=== PATIENT | female | born 1955 | race Caucasian/White ===

== ENCOUNTER 2018-12-08 16:16 | Inpatient (IN) ==
--- NOTE | 2018-12-08 16:42 | Emergency Department Note ---
Disposition Clinical Impression: Non-STEMI (non-ST elevated myocardial infarction) Syncope Qualifiers: Syncope type: unspecified Qualified Code(s): R55 - Syncope and collapse Disposition: Admitted As Inpatient Condition: Good Referrals: NONE,PCP [Primary Care Provider] - Time of Disposition: 19:20 General Adult HPI - General Stated complaint: nausea Time Seen by Provider: 12/08/18 16:18 Source: patient, EMS Limitations: no limitations Nursing Notes Reviewed: Yes Vital Signs Reviewed: Yes - History of Present Illness HPI Narrative: Mrs. Thomson is a 63yo female with a pastmedhx of diabetes non-insulin dependent, HTN and anxiety that presents complaining of dizziness that has now resolved. Patient states that she stood up from the couch around 1pm, got very dizzy and lightheaded and had to sit down. She called her daughter from upstairs and when daughter came downstairs to check on her mom, she stated her mom was shaking diffusely including arms and legs with eyes rolling in the back of her head. This episode lasted for ~5 minutes. No incontinence or tongue biting reported. Patient denies LOC or hitting her head but doesn't recall much of the event and was confused for a short time afterwards. Patient has no histo ry of seizures. On arrival patient is no longer dizzy and has no current complaints including no chest pain, shortness of breath, vomiting or diarrhea. Per patient's family as well as the patient, the past few days, patient has been having increased fatigue as well as shortness of breath with exertion. Denies any actual chest pain. States that today her fatigue and generalized weakness was worse than usual. She states that she was unable to walk a few feet before having to stop secondary to dyspnea. She states this is very atypical for her. Patient does not wear oxygen at home. Pain Scale: 0 - Related Data Home Medications Medication Instructions Recorded Confirmed ALPRAZolam [Xanax 1 MG Tablet] 1 mg PO BID PRN 12/08/18 12/08/18 Bupropion HCl [Wellbutrin Xl] 300 mg PO DAILY 12/08/18 12/08/18 Gabapentin 600 mg PO TID 12/08/18 12/08/18 Lisinopril-HCTZ 20-12.5 [Prinzide 1 each PO DAILY 12/08/18 12/08/18 20-12.5] Metformin HCl [Fortamet] 500 mg PO DAILY 12/08/18 12/08/18 OxyCODONE/APAP 10/325 [Percocet 1 each PO Q6H PRN 12/08/18 12/08/18 10/325 MG] Allergies Allergy/AdvReac Type Severity Reaction Status Date / Time No Known Allergies Allergy Verified 07/06/16 03:05 Constitutional: Denies: fever, chills Cardiovascular: Denies: chest pain, palpitations, syncope Respiratory: Denies: cough Gastrointestinal: Denies: abdominal pain, nausea, vomiting, diarrhea Genitourinary: Denies: urgency, dysuria Musculoskeletal: Denies: back pain, myalgia Neurological: Denies: headache, paresthesias Past Medical History - Past Medical History Medical history: Reports: diabetes, hypertension Psychiatric history: Reports: anxiety, depression WEIGHT COUNT OPERATOR history: Reports: no WEIGHT COUNT OPERATOR history - Social History Smoking Status: Current every day smoker Smokeless Tobacco Status: No Alcohol use: Reports: none Drug use: Reports: none Physical Exam - General Limitations: no limitations General appearance: alert, in no apparent distress - Head Head exam: atraumatic, normocephalic - ENT ENT exam: normal exam, normal oropharynx, mucous membranes moist - Neck Neck exam: Present: normal inspection, full ROM, trachea midline - Chest Chest inspection: Present: normal inspection - Respiratory Respiratory exam: Present: normal lung sounds bilaterally. Absent: wheezes, stridor - Cardiovascular Cardiovascular exam: Present: regular rate, normal rhythm, normal heart sounds - Abdominal Exam Abdominal exam: Present: soft, Non-Tender. Absent: tenderness, distention, guarding - Extremities Exam Extremities exam: Present: normal inspection, full ROM. Absent: tenderness, pedal edema - Expanded Lower Extremity Exam Neurovascular/Tendon exam: Absent: motor deficit, sensory deficit, tendon deficit - Back Exam Back exam: Present: normal inspection, full ROM. Absent: tenderness - Neurological Exam Neurological exam: Present: alert, oriented X3, CN II-XII intact. Absent: motor sensory deficit - Psychiatric Psychiatric exam: Present: anxious - Skin Skin exam: Present: warm, dry, intact, normal color Course Vital Signs Temperature 98.5 F 12/08/18 16:38 Pulse Rate 98 12/08/18 16:38 Respiratory Rate 16 12/08/18 16:38 Blood Pressure 144/94 12/08/18 16:38 O2 Sat by Pulse Oximetry 99 12/08/18 16:38 Temperature 98.5 F 12/08/18 16:38 Pulse Rate 102 12/08/18 18:53 Respiratory Rate 18 12/08/18 18:53 Blood Pressure 159/107 12/08/18 18:53 O2 Sat by Pulse Oximetry 100 12/08/18 18:53 Oxygen Delivery Oxygen Delivery Room Air Medical Decision Making - MDM Narrative Medical decision making narrative: Patient is a 63-year-old female presenting following syncopal episode. On initial evaluation, patient is alert and oriented 3, NIH of 0, GCS of 15, family is at bedside. Patient otherwise in no acute distress with nonfocal examination. No neuro deficits, neurovascularly intact. Patient states she has had generalized weakness and fatigue for the past few days worse today with exertional dyspnea. Concern for intracranial etiology, CT of the head will be performed. Cardiac or pulmonary etiology as well, CBC, BMP as well as troponin, EKG, chest x-ray were also performed. X-ray work does show concern for elevated troponin at 0.20, further CBC and BMP are unremarkable. Given elevated troponin, patient will also have a d-dimer performed, as patient is otherwise low risk no history of DVT or PE in the past. No lower leg swelling. No history of malignancy or recent surgery/long travel. D-dimer is in the normal limits therefore CTA was not performed. Patient was given 324 mg of aspirin. EKG shows no acute ischemic changes, chest x-ray shows no acute cardiopulmonary etiology. CT of the head is negative for acute intracranial changes. At this point in time, patient will be admitted for concern for single episode as well as ACS as patient does have an STEMI with elevated troponin. - Medical Records Medical records reviewed: Yes I reviewed the patient's medical records. - Lab Data Lab results reviewed: Yes I reviewed the patient's lab results. Result diagrams: 12/08/18 17:29 12/08/18 17:29 Lab Results 12/08/18 12/08/18 12/08/18 Range/Units 17:28 17:29 17:29 WBC 12.2 H (4.3-11.1) K/mcL RBC 3.68 L (3.82-4.97) M/mcL Hgb 12.0 (11.5-15.4) g/dL Hct 36.0 (35.3-44.9) % MCV 97.8 (83.0-100.0) fL MCH 32.6 (28.0-33.3) pg MCHC 33.3 (31.6-35.5) g/dL RDW 12.4 (11.5-14.5) % Plt Count 236 (140-400) K/mcL MPV 10.2 (9.4-12.4) fL Immature Gran % 0.5 (0-4) % Seg Neutrophils % 76.3 % Lymphocytes % 17.8 % Monocytes % 3.4 % Eosinophils % 1.3 % Basophils % 0.7 % Neutrophils # 9.3 H (1.6-8.9) K/mcL Lymphocytes # 2.2 (0.6-4.6) K/mcL Monocytes # 0.4 (0.0-1.3) K/mcL Eosinophils # 0.2 (0.0-0.6) K/mcL Basophils # 0.1 (0.0-0.2) K/mcL PT 11.1 (9.4-12.1) Seconds INR 1.0 APTT 33.6 (26.0-36.0) Seconds D-Dimer (0-500) ng/mLFEU Sodium (136-145) mEq/L Potassium (3.5-5.1) mEq/L Chloride (98-107) mEq/L Carbon Dioxide (23-29) mEq/L BUN (8-23) mg/dL Creatinine (0.60-1.20) mg/dL Est GFR ( Amer) (> 60) Est GFR (Non-Af Amer) (> 60) BUN/Creatinine Ratio (6-26) Glucose (70-105) mg/dL Calculated Osmolality (280-300) Lactic Acid (0.5-2.2) mmol/L Calcium (8.6-10.3) mg/dL Total Bilirubin (0.3-1.0) mg/dL AST (13-39) Units/L ALT (7-52) Units/L Alkaline Phosphatase (34-104) Units/L Troponin I (< 0.04) ng/mL Serum Total Protein (6.4-8.9) g/dL Albumin (3.5-5.7) g/dL Globulin (2.4-3.5) g/dL Albumin/Globulin Ratio (1.1-2.2) Urine Color Yellow (Yellow) Urine Clarity Clear (Clear) Urine pH 6.0 (5.0-8.0) pH Units Ur Specific [place] 1.012 (1.010-1.025) Urine Protein Negative (Neg-Trace) mg/dL Urine Glucose (UA) 250 H (Normal) mg/dL Urine Ketones Negative (Negative) mg/dL Urine Blood Negative (Negative) Urine Nitrite Negative (Negative) Urine Bilirubin Negative (Negative) Urine Urobilinogen Normal (Normal) mg/dL Ur Leukocyte Esterase Negative (Negative) 12/08/18 12/08/18 12/08/18 Range/Units 17:29 17:29 17:29 WBC (4.3-11.1) K/mcL RBC (3.82-4.97) M/mcL Hgb (11.5-15.4) g/dL Hct (35.3-44.9) % MCV (83.0-100.0) fL MCH (28.0-33.3) pg MCHC (31.6-35.5) g/dL RDW (11.5-14.5) % Plt Count (140-400) K/mcL MPV (9.4-12.4) fL Immature Gran % (0-4) % Seg Neutrophils % % Lymphocytes % % Monocytes % % Eosinophils % % Basophils % % Neutrophils # (1.6-8.9) K/mcL Lymphocytes # (0.6-4.6) K/mcL Monocytes # (0.0-1.3) K/mcL Eosinophils # (0.0-0.6) K/mcL Basophils # (0.0-0.2) K/mcL PT (9.4-12.1) Seconds INR APTT (26.0-36.0) Seconds D-Dimer 409 (0-500) ng/mLFEU Sodium 133 L (136-145) mEq/L Potassium 3.4 L (3.5-5.1) mEq/L Chloride 102 (98-107) mEq/L Carbon Dioxide 20 L (23-29) mEq/L BUN 12 (8-23) mg/dL Creatinine 0.86 (0.60-1.20) mg/dL Est GFR ( Amer) > 60 (> 60) Est GFR (Non-Af Amer) > 60 (> 60) BUN/Creatinine Ratio 14 (6-26) Glucose 242 H (70-105) mg/dL Calculated Osmolality 284 (280-300) Lactic Acid 2.0 (0.5-2.2) mmol/L Calcium 9.4 (8.6-10.3) mg/dL Total Bilirubin 0.2 L (0.3-1.0) mg/dL AST 15 (13-39) Units/L ALT 12 (7-52) Units/L Alkaline Phosphatase 73 (34-104) Units/L Troponin I 0.20 H* (< 0.04) ng/mL Serum Total Protein 7.4 (6.4-8.9) g/dL Albumin 4.2 (3.5-5.7) g/dL Globulin 3.2 (2.4-3.5) g/dL Albumin/Globulin Ratio 1.3 (1.1-2.2) Urine Color (Yellow) Urine Clarity (Clear) Urine pH (5.0-8.0) pH Units Ur Specific [place] (1.010-1.025) Urine Protein (Neg-Trace) mg/dL Urine Glucose (UA) (Normal) mg/dL Urine Ketones (Negative) mg/dL Urine Blood (Negative) Urine Nitrite (Negative) Urine Bilirubin (Negative) Urine Urobilinogen (Normal) mg/dL Ur Leukocyte Esterase (Negative) - Radiology Data Radiology results reviewed: Yes I reviewed the patient's radiology results. Chest X-Ray 12/08/18 16:56 IMPRESSION: No acute process. D/ / Saeed Ramirez MD / Saeed Ramirez MD Interpreting Provider: Saeed Ramirez MD Head CT 12/08/18 16:57 IMPRESSION: No acute intracranial abnormality. D/ / Franco Aldridge MD / Franco Aldridge MD Interpreting Provider: Franco Aldridge MD - EKG Data EKG #1 EKG attestation: Yes I reviewed and interpreted this EKG. EKG results narrative: EKG performed at 1824 ventricular rate of 92, ears to be regular rhythm, normal axis, no ST segment elevation, depression or T-wave changes. Attestation Statement - Attestation Attestation: I, Rodrick Renner, examined this patient and my medical decision-making was reviewed with the ODD JOB LABORER/PA/Advanced Practice Nurse/Resident Physician. I agree with the documented findings, disposition and treatment plan as described except to the extent set forth below. 63-year-old female presents emergency Department with concerns of nausea after a syncopal episode. Patient states that she was found unresponsive with shaking movements and her eyes rolled in the back of her head. Patient believes that she remembers what happened during this time however she is unable to give a full history regarding the events surrounding it. She denied chest pain or shortness of breath or palpitations during the event or prior to it. There are none present in the emergency department. Patient does state that she has been weak and fatigued throughout the day today. Patient denies a history of cardiac disease. EKG did not show evidence of STEMI or other dysrhythmia. I reviewed the EKG with the resident and agree with the interpretation. Patient given aspirin and heparin in the emergency department. She will be admitted as an STEMI for further care. no critical care on this case.
[2018-12-08] MEDS ORDERED: 0.9 % Sodium Chloride 1,000 ML IVC ONE (16:56)
[2018-12-08 17:41] LABS: Bilirubin,Urine Negative (Negative); Blood,Urine Negative (Negative); Clarity,Urine Clear (Clear); Color,Urine Yellow (Yellow); Glucose,Urine (UA) 250 mg/dL (Normal); Ketones,Urine Negative (Negative); Leukocyte Esterase,Urine Negative (Negative); Nitrite,Urine Negative (Negative); Protein,Urine Negative (Neg-Trace); Specific Gravity,Urine 1.012 (1.010-1.025); Urobilinogen,Urine Normal (Normal)
[2018-12-08 17:52] LABS: Basophils # 0.1 K/mcL (0.0-0.2); Basophils % 0.7 %; Eosinophils # 0.2 K/mcL (0.0-0.6); Eosinophils % 1.3 %; Immature Granulocytes % 0.5 % (0-4); Lymphocytes # 2.2 K/mcL (0.6-4.6); Lymphocytes % 17.8 %; Mean Corpuscular HGB Conc 33.3 g/dL (31.6-35.5); Mean Corpuscular Hemoglobin 32.6 pg (28.0-33.3); Mean Corpuscular Volume 97.8 fL (83.0-100.0); Mean Platelet Volume 10.2 fL (9.4-12.4); Monocytes # 0.4 K/mcL (0.0-1.3); Monocytes % 3.4 %; Neutrophils # 9.3 K/mcL (1.6-8.9); Platelet Count 236 K/mcL (140-400); Red Blood Count 3.68 M/mcL (3.82-4.97); Red Cell Distribution Width 12.4 % (11.5-14.5); Segmented Neutrophils % 76.3 %; White Blood Count 12.2 K/mcL (4.3-11.1)
[2018-12-08 17:56] LABS: Prothrombin Time 11.1 Seconds (9.4-12.1)
[2018-12-08 17:59] LABS: Activated Partial Thrombo Time 33.6 Seconds (26.0-36.0)
[2018-12-08 18:12] LABS: Alanine Aminotransferase 12 Units/L (7-52); Albumin 4.2 g/dL (3.5-5.7); Albumin/Globulin Ratio 1.3 (1.1-2.2); Alkaline Phosphatase 73 Units/L (34-104); Aspartate Amino Transferase 15 Units/L (13-39); BUN/Creatinine Ratio 14 (6-26); Bilirubin,Total 0.2 mg/dL (0.3-1.0); Blood Urea Nitrogen 12 mg/dL (8-23); Calcium 9.4 mg/dL (8.6-10.3); Carbon Dioxide 20 mEq/L (23-29); Chloride 102 mEq/L (98-107); Globulin 3.2 g/dL (2.4-3.5); Glucose 242 mg/dL (70-105); Osmolality,Calculated 284 (280-300); Potassium 3.4 mEq/L (3.5-5.1); Sodium 133 mEq/L (136-145); Total Protein 7.4 g/dL (6.4-8.9); eGFR For African Americans > 60 (> 60); eGFR For Non-African Americans > 60 (> 60)
[2018-12-08] MEDS ORDERED: Aspirin 81 MG TAB.CHEW PO ONE (18:17)
[2018-12-08] MEDS ORDERED: Naloxone 0.4 MG/ML INJ IVP PRN (20:38)
--- NOTE | 2018-12-08 20:40 | Internal Med History&Physical ---
Date of Encounter: 12/08/18 Time of Encounter: 20:36 Internal Medicine - H&P: HPI Chief complaint: Syncope History of present illness: Ms. Thomson is a 63 year old female with a past medhx of diabetes non-insulin dependent, HTN and anxiety who presented to the ED after patient became unresponsive at home. Patient was in her usual state of health today. She stood up from the couch around 1pm, got very dizzy and lightheaded and had to sit down. She called her daughter from upstairs and when daughter came downstairs to check on her mom, she stated her mom was shaking diffusely including arms and legs with eyes rolling in the back of her head. Patient does not recall uncontrollable shaking of her left upper and lower extremities. Episode lasted approximately 5 minutes. Patient denies loss of consciousness but does not recall the event and was confused reportedly for a short period of time afterwards. Patient has no prior history of seizures or cardiac disease. No reports of weakness on one side or facial droop. Patient states that her daughter did note some slurred speech after the initial episode. No reports of chest pain, shortness of breath, nausea, vomiting or diarrhea. No incontinence or tongue biting reported. Patient smokes half a pack a day and has been smoking for the past 35 years. No significant alcohol use. On initial arrival, patient was afebrile, mildly hypertensive and mildly tachycardic. Laboratory workup notable for a neutrophilic leukocytosis of 12.2, mild hypokalemia of 3.4 an elevated troponin of 0.2. Initial EKG showed sinus rhythm with nonspecific ST and T-wave changes. CT scan of the head was performed which showed no acute intracranial abnormality. Patient given a loading dose of aspirin. Paient wishes to be DNR/DNI. Past Med Surg Social Fam HX - Past Medical History Medical history: diabetes, hypertension Psychiatric history: anxiety, depression - Social History Smoking Status: Current every day smoker Smokeless Tobacco Status: No Alcohol use: none Drug use: none - Family History Father Living Status: Hx Family Cardiac Disorders: Yes Mother Living Status: Hx Family Cardiac Disorders: Yes Hx Family Endocrine Disorder: Yes Internal Medicine - H&P: Meds ALPRAZolam [Xanax 1 MG Tablet] 1 mg PO BID PRN 12/08/18 [History] Bupropion HCl [Wellbutrin Xl] 300 mg PO DAILY 12/08/18 [History] Gabapentin 600 mg PO TID 12/08/18 [History] Lisinopril-HCTZ 20-12.5 [Prinzide 20-12.5] 1 each PO DAILY 12/08/18 [History] Metformin HCl [Fortamet] 500 mg PO DAILY 12/08/18 [History] OxyCODONE/APAP 10/325 [Percocet 10/325 MG] 1 each PO Q6H PRN 12/08/18 [History] Allergy/AdvReac Type Severity Reaction Status Date / Time No Known Allergies Allergy Verified 07/06/16 03:05 All Systems PM: A 10-system review of systems was performed and is negative for pertinent findings except as documented above in the HPI. - Constitutional Constitutional: no chills, no fever(s), no night sweats - EENT Eyes: no change in vision, no discharge, no pain, no photophobia Ears: no ear discharge, no ear pain, no tinnitus Nose, mouth and throat: no dysphagia, no nasal discharge, no neck pain, no sore throat - Cardiovascular Cardiovascular ROS IM: no chest pain, no diaphoresis, no dyspnea, no lightheadedness, no palpitations, no syncope - Respiratory Respiratory: no cough, no dyspnea, no wheezing, no excessive phlegm production - Gastrointestinal Gastrointestinal: no abdominal pain, no diarrhea, no hematemesis, no hematochezia, no melena, no nausea, no vomiting - Genitourinary Genitourinary: no change in urinary stream, no dysuria, no flank pain, no hematuria - Musculoskeletal Musculoskeletal ROS IM: no numbness, no tingling - Integumentary Integumentary IM: no rash, no unusual bruising - Neurological Neurological ROS: no confusion, no convulsions, no focal weakness, no numbness, no tingling, no tremor(s) - Hematologic/Lymphatic Hematologic/Lymphatic: no easy bruising - Constitutional Vitals: Temp Pulse Resp BP Pulse Ox 98.5 F 96 18 144/94 98 12/08/18 16:38 12/08/18 19:47 12/08/18 19:47 12/08/18 19:47 12/08/18 19:47 Exam: General: Alert and oriented 3 lying in bed in no acute distress Skin:Normal color, no rash, no lesions. HEENT:EOM, pupils equal, round and reactive. Cardiovascular:Normal S1 & S2, no rubs, murmurs or gallops. No JVD. Pulse regular. Lungs:Normal breath sounds, no wheezes or crackles. Abdomen:Soft, non-tender, no rigidity. Extremities:No deformity, no edema or tenderness, no joint swelling or clubbing. Neurological:Normal cognition and motor skills. Pulses:Carotid and radial pulses normal +2. Rest of the physical exam is non contributory Internal Med - H&P Results - Labs CBC & Chem 7: 12/09/18 00:21 12/09/18 00:21 Labs: Short CBC 12/08/18 Range/Units 17:29 WBC 12.2 H (4.3-11.1) K/mcL Hgb 12.0 (11.5-15.4) g/dL Hct 36.0 (35.3-44.9) % Plt Count 236 (140-400) K/mcL Neutrophils # 9.3 H (1.6-8.9) K/mcL BMP 12/08/18 17:29 Sodium 133 L Potassium 3.4 L Chloride 102 Carbon Dioxide 20 L BUN 12 Creatinine 0.86 Glucose 242 H Calcium 9.4 Cardiac Enzymes 12/08/18 Range/Units 17:29 Troponin I 0.20 H* (< 0.04) ng/mL Liver Function 12/08/18 Range/Units 17:29 Total Bilirubin 0.2 L (0.3-1.0) mg/dL AST 15 (13-39) Units/L ALT 12 (7-52) Units/L Alkaline Phosphatase 73 (34-104) Units/L Albumin 4.2 (3.5-5.7) g/dL Urine 12/08/18 Range/Units 17:28 Urine Color Yellow (Yellow) Urine Clarity Clear (Clear) Urine pH 6.0 (5.0-8.0) pH Units Ur Specific [place] 1.012 (1.010-1.025) Urine Protein Negative (Neg-Trace) mg/dL Urine Glucose (UA) 250 H (Normal) mg/dL - Impressions ITS Impressions Chest X-Ray 12/08/18 16:56 IMPRESSION: No acute process. D/ / Saeed Ramirez MD / Saeed Ramirez MD Interpreting Provider: Saeed Ramirez MD Head CT 12/08/18 16:57 IMPRESSION: No acute intracranial abnormality. D/ / Franco Aldridge MD / Franco Aldridge MD Interpreting Provider: Franco Aldridge MD - Assessment and Plan (1) Syncope Current Visit: Yes Status: Acute Assessment and plan: 63-year-old female with history of type 2 diabetes and hypertension found unresponsive with shaking movements and eyes will back with reported subsequent transient confusion. Patient now appears to be at baseline with no focal findings. Glucose elevated on arrival. Workup thus far notable for a elevated troponin of 0.2. EKG and CT of the head otherwise unremarkable. D-dimer less than 500 in the setting of low pretest possibility for PE. Differential at this time includes TIA, seizure, NSTEMI. -Telemetry -Seizure precautions -Neuro checks every 4hrs -Check orthostatics -Echocardiogram -Bilateral carotid duplex -Cardiology consult due to concern for NSTEMI Qualifiers: Syncope type: unspecified Qualified Code(s): R55 - Syncope and collapse (2) Non-STEMI (non-ST elevated myocardial infarction) Current Visit: Yes Status: Acute Assessment and plan: Concern for NSTEMI given elevated troponin in the setting of syncope. Repeat troponin 0.8. Review of EKG shows no ST or T-wave changes concerning for ischemia. No prior history of cardiac disease the patient has significant risk factors of hypertension, diabetes and chronic smoking history. -Telemetry -Trend troponin -Echocardiogram -Continue aspirin; will start on low-dose beta yao and statin -We will start on heparin drip if troponin continues to rise -Cardiology consult (3) Type 2 diabetes mellitus Current Visit: Yes Status: Acute Assessment and plan: Blood sugar found to be 242 on arrival. Patient currently on metformin. -Diabetic diet -Sliding scale plus basal insulin with glucose checks Qualifiers: Qualified Code(s): E11.9 - Type 2 diabetes mellitus without complications (4) HTN (hypertension) Current Visit: Yes Status: Acute Assessment and plan: Blood pressure mildly elevated on arrival. Currently 144/94. -We will check orthostatics -Monitor blood pressure overnight and resume antihypertensive if indicated Qualifiers: Hypertension type: essential hypertension Qualified Code(s): I10 - Essential (primary) hypertension (5) Neutrophilic leukocytosis Current Visit: Yes Status: Acute Assessment and plan: Leukocytosis of 12.2. No evidence of underlying infection. Likely reactive in setting of syncope. -We will monitor. (6) DVT prophylaxis Current Visit: Yes Status: Acute Assessment and plan: Subcutaneous heparin - Time Spent With Patient Total time spent is greater than 50% in coordination of care (as documented) at patient's floor/unit and/or counseling patient:
[2018-12-08] MEDS ORDERED: *HR* Dextrose 50 % in Water (Syg) 50 ML SYRINGE IVP PRN (20:43)
[2018-12-08] MEDS ORDERED: D5% in Water 1,000 ML IVC PRN (20:43)
[2018-12-08] MEDS ORDERED: Dextrose Gel 15 GM/37.5 ML TUBE PO PRN ×2 (20:43)
[2018-12-08] MEDS: Insulin LISPRO 300 UNITS/3 ML VIAL SQ SCH (22:14)
[2018-12-08] MEDS: Gabapentin 300 MG CAPSULE PO SCH (23:21)
[2018-12-08] MEDS: Insulin DETEMIR 100 UNIT/ML X5UNITS SQ SCH (23:24)
[2018-12-09 00:29] LABS: Basophils # 0.1 K/mcL (0.0-0.2); Basophils % 0.8 %; Eosinophils # 0.4 K/mcL (0.0-0.6); Eosinophils % 2.9 %; Hematocrit 32.1 % (35.3-44.9); Hemoglobin 10.7 g/dL (11.5-15.4); Immature Granulocytes % 0.3 % (0-4); Lymphocytes # 4.9 K/mcL (0.6-4.6); Lymphocytes % 38.5 %; Mean Corpuscular HGB Conc 33.3 g/dL (31.6-35.5); Mean Corpuscular Hemoglobin 32.6 pg (28.0-33.3); Mean Corpuscular Volume 97.9 fL (83.0-100.0); Mean Platelet Volume 9.8 fL (9.4-12.4); Monocytes # 0.6 K/mcL (0.0-1.3); Monocytes % 4.5 %; Neutrophils # 6.8 K/mcL (1.6-8.9); Platelet Count 226 K/mcL (140-400); Red Blood Count 3.28 M/mcL (3.82-4.97); Red Cell Distribution Width 12.5 % (11.5-14.5); White Blood Count 12.8 K/mcL (4.3-11.1)
[2018-12-09 00:52] LABS: Alanine Aminotransferase 11 Units/L (7-52); Albumin 3.8 g/dL (3.5-5.7); Albumin/Globulin Ratio 1.2 (1.1-2.2); Alkaline Phosphatase 65 Units/L (34-104); Aspartate Amino Transferase 16 Units/L (13-39); BUN/Creatinine Ratio 12 (6-26); Bilirubin,Total 0.3 mg/dL (0.3-1.0); Blood Urea Nitrogen 10 mg/dL (8-23); Calcium 8.9 mg/dL (8.6-10.3); Carbon Dioxide 20 mEq/L (23-29); Chloride 108 mEq/L (98-107); Chol/HDL Ratio 2.8 (0-4.9); Cholesterol 144 mg/dL (< 200); Globulin 3.1 g/dL (2.4-3.5); Glucose 162 mg/dL (70-105); HDL Cholesterol 52 mg/dL (40-59); LDL Cholesterol,Calculated 72 mg/dL (0-99); Osmolality,Calculated 283 (280-300); Potassium 3.1 mEq/L (3.5-5.1); Sodium 135 mEq/L (136-145); Total Protein 6.9 g/dL (6.4-8.9); Triglycerides 102 mg/dL (< 150); eGFR For African Americans > 60 (> 60); eGFR For Non-African Americans > 60 (> 60)
[2018-12-09 06:28] LABS: Chol/HDL Ratio 2.9 (0-4.9)
[2018-12-09] MEDS: Insulin LISPRO 300 UNITS/3 ML VIAL SQ SCH ×3 (07:42→17:41)
[2018-12-09] MEDS: Aspirin 81 MG TAB.CHEW PO SCH (07:59)
[2018-12-09] MEDS: Gabapentin 300 MG CAPSULE PO SCH ×3 (07:59→21:29)
[2018-12-09] MEDS: BuPROPion XL (24 HR) 150 MG TABLET PO SCH (07:59)
--- NOTE | 2018-12-09 08:30 | Internal Med Progress Note ---
Hospitalist Progress Note - Encounter Date of Encounter: 12/09/18 Time of Encounter: 09:00 - Subjective Interval History: No acute events overnight - Exam Vitals: Temp Pulse Resp BP Pulse Ox 97.5 F L 68 16 98/65 99 12/09/18 08:08 12/09/18 08:08 12/09/18 08:08 12/09/18 08:08 12/09/18 08:08 Exam: General: Alert and oriented 3 lying in bed in no acute distress Skin:Normal color, no rash, no lesions. HEENT:EOM, pupils equal, round and reactive. Cardiovascular:Normal S1 & S2, no rubs, murmurs or gallops. No JVD. Pulse regular. Lungs:Normal breath sounds, no wheezes or crackles. Abdomen:Soft, non-tender, no rigidity. Extremities:No deformity, no edema or tenderness, no joint swelling or clubbing. Neurological:Normal cognition and motor skills. Pulses:Carotid and radial pulses normal +2. Rest of the physical exam is non contributory - Assessment and Plan (1) Non-STEMI (non-ST elevated myocardial infarction) Current Visit: Yes Status: Acute Assessment and Plan: Concern for NSTEMI given elevated troponin in the setting of syncope. No prior history of cardiac disease the patient has significant risk factors of hypertension, diabetes and chronic smoking history. Troponins trended from 0.2 to 0.8 to 0.45. She was not anticoagulated overnight No ongoing chest pain. Will hold off on anticoagulation pending cardio recs Echo pending (2) Syncope Current Visit: Yes Status: Acute Assessment and Plan: Syncopal episode query seizures vs dehydration vs NSTEMI Continue IV fluid resusitation. Echo and EEG pending Cardiology and neuro recs appreciated (3) Type 2 diabetes mellitus Current Visit: Yes Status: Acute Assessment and Plan: Blood sugar found to be 242 on arrival. Patient currently on metformin. -Diabetic diet -Sliding scale plus basal insulin with glucose checks (4) HTN (hypertension) Current Visit: Yes Status: Acute Assessment and Plan: Hold BP meds and hydrate. BP is borderline hypotensive (5) Neutrophilic leukocytosis Current Visit: Yes Status: Acute Assessment and Plan: Leukocytosis of 12.2. No evidence of underlying infection. Likely reactive in setting of syncope. No indication for antibiotics (6) DVT prophylaxis Current Visit: Yes Status: Acute Assessment and Plan: Subcutaneous heparin - Time Spent with Patient Total time spent is greater than 50% in coordination of care (as documented) at patient's floor/unit and/or counseling patient: Internal Medicine: Result - Labs CBC & Chem 7: 12/09/18 00:21 12/09/18 00:21 Labs: Short CBC 12/08/18 12/09/18 Range/Units 17: 00:21 WBC 12.2 H 12.8 H (4.3-11.1) K/mcL Hgb 12.0 10.7 L (11.5-15.4) g/dL Hct 36.0 32.1 L (35.3-44.9) % Plt Count 236 226 (140-400) K/mcL Neutrophils # 9.3 H 6.8 (1.6-8.9) K/mcL BMP 12/08/18 12/09/18 17:29 00:21 Sodium 133 L 135 L Potassium 3.4 L 3.1 L Chloride 102 108 H Carbon Dioxide 20 L 20 L BUN 12 10 Creatinine 0.86 0.83 Glucose 242 H 162 H Calcium 9.4 8.9 Cardiac Enzymes 12/08/18 12/09/18 12/09/18 Range/Units 17: 00:21 05:35 Troponin I 0.20 H* 0.80 H* 0.45 H* (< 0.04) ng/mL Liver Function 12/08/18 12/09/18 Range/Units 17: 00:21 Total Bilirubin 0.2 L 0.3 (0.3-1.0) mg/dL AST 15 16 (13-39) Units/L ALT 12 11 (7-52) Units/L Alkaline Phosphatase 73 65 (34-104) Units/L Albumin 4.2 3.8 (3.5-5.7) g/dL Urine 12/08/18 Range/Units 17:28 Urine Color Yellow (Yellow) Urine Clarity Clear (Clear) Urine pH 6.0 (5.0-8.0) pH Units Ur Specific [place] 1.012 (1.010-1.025) Urine Protein Negative (Neg-Trace) mg/dL Urine Glucose (UA) 250 H (Normal) mg/dL - ABG Interpretation ABG results: PT/INR, D-dimer PT 11.1 Seconds (9.4-12.1) 12/08/18 17:29 D-Dimer 409 ng/mLFEU (0-500) 12/08/18 17:29 - Impressions Impressions Chest X-Ray 12/08/18 16:56 IMPRESSION: No acute process. D/ / Saeed Ramirez MD / Saeed Ramirez MD Interpreting Provider: Saeed Ramirez MD Head CT 12/08/18 16:57 IMPRESSION: No acute intracranial abnormality. D/ / Franco Aldridge MD / Franco Aldridge MD Interpreting Provider: Franco Aldridge MD Consult Discharge Plan - Plan Referrals: NONE,PCP [Primary Care Provider] - (2) Syncope Qualifiers: Syncope type: unspecified Qualified Code(s): R55 - Syncope and collapse (3) Type 2 diabetes mellitus Qualifiers: Qualified Code(s): E11.9 - Type 2 diabetes mellitus without complications (4) HTN (hypertension) Qualifiers: Hypertension type: essential hypertension Qualified Code(s): I10 - Essential (primary) hypertension
--- NOTE | 2018-12-09 08:34 | Cardiology Consult Note ---
Date of Encounter: 12/09/18 Time of Encounter: 09:51 Assessment and Plan (1) Altered mental state Current Visit: Yes Status: Acute Patient is current alert and answering appropriately but yesterday had two seizure-like episodes with seeming post-ictal period. -Unclear etiology -Elevated troponins x3, 0.20>0.80>0.45 -Continue to monitor on telemetry. -Echocardiogram and carotid duplex are currently ordered -Will follow and manage based on telemetry and test results Qualifiers: Qualified Code(s): R40.4 - Transient alteration of awareness Discussion w patient/family: The assessment and plan as outlined above was discussed with the patient and/or family members who expressed understanding and agreement. All questions were answered. Thank you for involving us in the care of your patient. Please call with any questions. History of Present Illness Consult date: 12/09/18 Requesting physician: Ganesh Esteban Consult reason: syncope and elevated troponins Chief complaint: syncope History of present illness: Ms. Thomson is a 63 year old female who presents for syncope and elevated troponins in a context of hypertension, anxiety, and NIDD. Yesterday afternoon around 1300, patient stood up and immediately felt very dizzy and lightheaded. She sat back down and then, when it did not go away, called her daughter downstairs. Daughter found her shaking all over, including arms and legs, with her eyes rolled back into her head. This lasted about five minutes and there were two episodes. She did not lose consciousness or hit her head. She has very little memory of these events and was very confused afterward for a brief while. She has no history of seizures in past. No recent illnesses or injuries. No new medications. No family history of similar symptoms. She was brought to the hospital by EMS, who reported that her blood glucose was 309; she generally checks at home, but had run out of test strips a couple of days ago. Over last few days, patient has had increased fatigue and exertional dyspnea. She has had no chest pain. Yesterday, these symptoms were worse than usual and she could not walk more than a few feet before she became short of breath. This is unusual for her. She does not wear any oxygen at home. In ED, D-dimer was normal at 409. She had elevated troponins x3 of 0.20>0.80>0.45. Potassium was low at 3.1. CXR showed no acute processes. Head CT showed no acute intracranial abnormality. She received ASA and heparin. ECG showed no ST segment elevation or depression and no T-wave changes. Today, she feels much better and slept well last night. MRI of head is being performed today. Neurology is consulted. Past Med Surg Social Fam HX - Past Medical History Medical history: diabetes, hypertension Psychiatric history: anxiety, depression - Past Surgical History Surgical History: no surgical history - Social History Smoking Status: Current every day smoker Packs per day: 1 pack a day Smokeless Tobacco Status: No Alcohol use: none Drug use: none - Family History Father Living Status: Hx Family Cardiac Disorders: Yes Mother Living Status: Hx Family Cardiac Disorders: Yes Hx Family Endocrine Disorder: Yes Medications and Allergies ALPRAZolam [Xanax 1 MG Tablet] 1 mg PO BID PRN 12/08/18 [History] Bupropion HCl [Wellbutrin Xl] 300 mg PO DAILY 12/08/18 [History] Gabapentin 600 mg PO TID 12/08/18 [History] Lisinopril-HCTZ 20-12.5 [Prinzide 20-12.5] 1 each PO DAILY 12/08/18 [History] Metformin HCl [Fortamet] 500 mg PO DAILY 12/08/18 [History] OxyCODONE/APAP 10/325 [Percocet 10/325 MG] 1 each PO Q6H PRN 12/08/18 [History] Allergy/AdvReac Type Severity Reaction Status Date / Time No Known Allergies Allergy Verified 07/06/16 03:05 All Systems Review: The remainder of the systems were reviewed and are negative - Constitutional Constitutional: fatigue, no weakness - EENT Eyes: no blurred vision - Cardiovascular Cardiovascular: dyspnea on exertion, no chest pain at rest, no chest pain with exertion, no dyspnea at rest, no leg edema, no orthopnea, no palpitations - Respiratory Respiratory: cough, dyspnea - Gastrointestinal Gastrointestinal: other (denies heartburn), no nausea - Genitourinary Genitourinary: no dysuria - Musculoskeletal Musculoskeletal: no muscle cramps - Neurological Neurological: no dizziness, no focal weakness, no loss of vision, no numbness, no tingling - Psychiatric Psychiatric: no anxiety Physical Examination Vital Signs, Last 4 Hours Temp Pulse Resp BP Pulse Ox 12/09/18 08:08 97.5 F L 68 16 98/65 99 12/09/18 05:01 83 103/71 Other: GENERAL: awake, pleasant, answers questions appropriately EYES: anicteric, clear sclerae, pupils equal and reactive to light bilaterally ENT: moist mucosa NECK: normal carotid pulses, no carotid bruits present CV: regular rate and rhythm, no murmurs heard. RESPIRATORY: clear to auscultation bilaterally, no wheezes, rhonchi, or rales GI: soft, nontender, nondistended. Normal bowel sounds heard. EXTREMITIES: peripheral pulses 2+/4, nonedematous. Capillary refill <2 sec. Warm, dry. Results 12/09/18 00:21 12/09/18 00:21 Lab Results 12/08/18 12/08/18 12/08/18 17:29 17:29 17:29 WBC 12.2 H Hgb 12.0 Hct 36.0 Plt Count 236 INR 1.0 APTT 33.6 D-Dimer Sodium 133 L Potassium 3.4 L Chloride 102 Carbon Dioxide 20 L BUN 12 Creatinine 0.86 Glucose 242 H Calcium 9.4 Total Bilirubin 0.2 L AST 15 ALT 12 Alkaline Phosphatase 73 Troponin I 0.20 H* 12/08/18 12/09/18 12/09/18 17:29 00:21 00:21 WBC 12.8 H Hgb 10.7 L Hct 32.1 L Plt Count 226 INR APTT D-Dimer 409 Sodium Potassium Chloride Carbon Dioxide BUN Creatinine Glucose Calcium Total Bilirubin AST ALT Alkaline Phosphatase Troponin I 0.80 H* 12/09/18 12/09/18 00:21 05:35 WBC Hgb Hct Plt Count INR APTT D-Dimer Sodium 135 L Potassium 3.1 L Chloride 108 H Carbon Dioxide 20 L BUN 10 Creatinine 0.83 Glucose 162 H Calcium 8.9 Total Bilirubin 0.3 AST 16 ALT 11 Alkaline Phosphatase 65 Troponin I 0.45 H* Consult Discharge Plan - Plan Referrals: NONE,PCP [Primary Care Provider] -
[2018-12-09 09:43] LABS: Estimated Average Glucose 174 mg/dl
[2018-12-09] MEDS ORDERED: Perflutren Lipid Microsphere 1.3 ML in 0.9 % Sodium Chloride 8.7 ML IVP ONE (11:53)
[2018-12-09] MEDS ORDERED: Perflutren Lipid Microsphere 2 ML VIAL ONE (11:57)
[2018-12-09] MEDS: Potassium Chloride Elixir 20 MEQ/15 ML UDC PO SCH ×2 (12:31→15:51)
--- NOTE | 2018-12-09 12:53 | Neurology - Consult Note ---
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 No prior history of seizures, no family history of seizures Neurological exam is nonfocal and nonlateralizing. CT head is unremarkable MRI is negative for acute findings PLAN: Echocardiogram pending Carotid duplex scan pending Recommending Ativan as needed for seizures C/W seizure precautions Does not recommend antiepileptic drugs at this time EEG pending Urine toxic screen History of Present Illness Chief complaint: seizures HPI: Ms. Thomson is a 63 year old female with a history of DM, HTN and anxiety. She presents with a chief concern of seizure-like activity. She reports that yesterday afternoon while babysitting her grandchild naproxen around 1 PM she got up off the couch to do some chores. Upon standing she became very dizzy resulting in her falling back onto the couch and subsequently she developed "shaking and my arms legs and ". She states that her daughter came downstairs but that she was unable to speak or talk to her daughter. This shaking event lasted approximately 2 minutes duration. She reports that she was confused and tired for about 20 minutes after. She reports a recurrent event approximately 20 minutes later except this time it lasted approximately 5 minutes duration. Of note, she denies any family history of seizures or any personal seizure history. Further, she denies any visual disturbance, headaches, head or neck pain or stiffness, flulike symptoms, joint aches or pains, fevers, chills, chest pain, shortness of breath, paresthesias or focal motor weakness. She does note that during the seizure-like activity she was having blurred vision and aphasia but does not endorse any other symptoms otherwise. She has not had repeat of these events since admission. She has had a few episodes of borderline hypotension but otherwise vitals remained stable. She has a mild leukocytosis of 12.8 which is most likely reactionary. Troponin was elevated at 0.20, 0.80 0.45 and there is concern for NSTEMI; cardiology following. Otherwise, she was found to have hypokalemia with serum potassium of 3.4 and a subsequent 3.1 after hydration. An MRI has been completed and negative for acute intracranial abnormalities finding only mild chronic microvascular ischemic disease. Echocardiograms been completed and read is pending. Carotid duplex scan also pending completion as well as EEG. Past Med Surg Social Fam HX - Past Medical History Medical history: diabetes, hypertension Psychiatric history: anxiety, depression - Past Surgical History Surgical History: no surgical history - Social History Smoking Status: Current every day smoker Packs per day: 1 pack a day Smokeless Tobacco Status: No Alcohol use: none Drug use: none - Family History Father Living Status: Hx Family Cardiac Disorders: Yes Mother Living Status: Hx Family Cardiac Disorders: Yes Hx Family Endocrine Disorder: Yes Medications and Allergies ALPRAZolam [Xanax 1 MG Tablet] 1 mg PO BID PRN 12/08/18 [History] Bupropion HCl [Wellbutrin Xl] 300 mg PO DAILY 12/08/18 [History] Gabapentin 600 mg PO TID 12/08/18 [History] Lisinopril-HCTZ 20-12.5 [Prinzide 20-12.5] 1 each PO DAILY 12/08/18 [History] Metformin HCl [Fortamet] 500 mg PO DAILY 12/08/18 [History] OxyCODONE/APAP 10/325 [Percocet 10/325 MG] 1 each PO Q6H PRN 12/08/18 [History] Allergy/AdvReac Type Severity Reaction Status Date / Time No Known Allergies Allergy Verified 07/06/16 03:05 All Systems: The remainder of the systems were reviewed and are negative Review of Systems: Review of systems as per history of present illness - Constitutional Constitutional ROS IM: as per HPI Physical Examination - Vital Signs Vital Signs: Initial Vital Signs Temp Pulse Resp BP Pulse Ox 98.5 F 98 16 144/94 99 12/08/18 16:38 12/08/18 16:38 12/08/18 16:38 12/08/18 16:38 12/08/18 16:38 - Exam Exam: Examination: General Examination: *CONSTITUTIONAL: Alert and oriented x3, no acute distress *GENERAL APPEARANCE OF PATIENT appears healthy and well groomed *EYES: pupils equal, round, reactive to light and accommodation, conjunctiva clear *CARDIOVASCULAR: no peripheral edema, distal temperature normal, dorsalis pedis pulses normal. Refer to vital signs * MUSCULOSKELETAL: *GAIT AND STATION: *ASSESSMENT OF MUSCLE STRENGTH IN THE UPPER AND LOWER EXTREMITIES bilateral deltoid, bicep, tricep, quality assurance supervisor trim strength, hip flexors ,anterior tibialis, dorsoflexion of the foot 5/5 *MUSCLE TONE IN THE UPPER AND LOWER EXTREMITIES normal. No abnormal movements, fasciculations or atrophy identified. Neurological: *ORIENTATION to person, situation, time and place *LANGUAGE AND FUNCTION no significant aphasia or dysarthia was noted. *ATTENTION AND CONCENTRATION are normal *LANGUAGE FUNCTION no significant aphasia or dysarthia was noted. *FUND OF KNOWLEDGE aware of current events, past history, vocabulary *MENTAL attention span and concentration normal. *CN II optic fundi were normal, no papilledema noted. *CN III,IV, PERRLA extraocular eye movements were full, no nystagmus and no ptosis noted. *CN V shows normal sensation and jaw opens symmetrically. *CN VII shows normal facial movement symmetrically, upper and lower bilaterally. *CN VIII shows no significant hearing loss on exam *CN IX-X palate elevated symmetrically *CN XI normal strength in the sternocleidomastoid muscles, symmetrical shoulder shrugging. *CN XII tongue protruded in the midline, with normal strength and movement. *SENSORY EXAMINATION light touch intact *REFLEXES: deep tendon reflexes were normal and symmetrical , grade 2/4 diffusely, no pathological reflexes were noted. *CEREBELLAR TESTING normal finger to nose, heel/knee/jason *PAIN LEVEL 0/10 Results - Laboratory Findings CBC and BMP: 12/09/18 00:21 12/09/18 00:21 Abnormal lab findings: Abnormal lab results WBC 12.8 K/mcL (4.3-11.1) H 12/09/18 00:21 RBC 3.28 M/mcL (3.82-4.97) L 12/09/18 00:21 Hgb 10.7 g/dL (11.5-15.4) L 12/09/18 00:21 Hct 32.1 % (35.3-44.9) L 12/09/18 00:21 Neutrophils # 9.3 K/mcL (1.6-8.9) H 12/08/18 17:29 Lymphocytes # 4.9 K/mcL (0.6-4.6) H 12/09/18 00:21 Heparin Anti-Xa, Unfract 0.04 IU/mL (0.30-0.70) L 12/09/18 05:35 Sodium 135 mEq/L (136-145) L 12/09/18 00:21 Potassium 3.1 mEq/L (3.5-5.1) L 12/09/18 00:21 Chloride 108 mEq/L (98-107) H 12/09/18 00:21 Carbon Dioxide 20 mEq/L (23-29) L 12/09/18 00:21 Glucose 162 mg/dL (70-105) H 12/09/18 00:21 POC Glucose 170 mg/dL (70-99) H 12/09/18 05:26 Hemoglobin A1c 7.7 % (-5.6) H 12/09/18 00:21 Total Bilirubin 0.2 mg/dL (0.3-1.0) L 12/08/18 17:29 Troponin I 0.45 ng/mL (< 0.04) H* 12/09/18 05:35 Urine Glucose (UA) 250 mg/dL (Normal) H 12/08/18 17:28 - Diagnostic Findings Additional findings: MR/MR head/brain wo con IMPRESSION: No acute intracranial abnormality. Mild chronic microvascular ischemic disease. CT/CT head/brain wo con IMPRESSION: No acute intracranial abnormality. Consult Discharge Plan - Plan Referrals: NONE,PCP [Primary Care Provider] -
[2018-12-09] MEDS ORDERED: *HR* LORazepam 2 MG/ML VIAL IVP PRN (13:49)
[2018-12-09] MEDS ORDERED: 0.9 % Sodium Chloride 1,000 ML IVC ONE (13:50)
--- NOTE | 2018-12-09 14:39 | Electrocardiograph Report ---
[address] [address] Test Date: 2018-12-08 Pat Name: Dea Thomson Department: [id number] Room: 2A41 Gender: F Gm Video: : 1955 Requested By: Rodrick Renner Order Number: [id number] Reading MD: Jorge Ibarra Measurements Intervals [place] Rate: 101 P: 74 [place]: 170 QRS: 59 QRSD: 87 T: 70 QT: 364 QTc: 472 Interpretive Statements Sinus tachycardia Low voltage, precordial leads Electronically Signed On 12-09-2018 14:37:49 EDT by Jorge Ibarra
--- NOTE | 2018-12-09 14:59 | Event Note ---
Date of Encounter: 12/09/18 Time of Encounter: 14:56 EEG has been completed showing normal awake and sleep, no epileptiform actvity identified Given that this is a first time seizure event and she has a normal EEG there is suspicion for non-epileptic seizures At this time we are not recommending starting antiepileptic drugs Recommending f/u with Neurology Dr. Quezada in 3-4 weeks after discharge
[2018-12-09] MEDS: Acetaminophen 325 MG TABLET PO PRN (15:49)
[2018-12-09] MEDS ORDERED: Potassium Chloride Elixir 20 MEQ/15 ML UDC PO SCH (16:00)
--- NOTE | 2018-12-09 17:20 | EEG/EMG/Oth Biometrics Report ---
EEG Procedure Report Date of procedure: 12/09/18 EEG Procedure: Routine EEG Procedure Note: This EEG was acquired with standard international 10-20 system with EKG recording. The background EEG activity was characterized by the presence of posterior dominant alpha rhythm with the best frequency up to 9 Hz. The background activity was reactive to eye openings. Sleep stages were not identified during this tracing. Drowsiness was characterized by drop off of posterior dominant Alpha rhythm. There are no electrographic seizures identified during this tracing. There are no epileptiform discharges or focal slowing noted during this recording. Photic stimulation produced no abnormalities. Hyperventilation procedure not performed EKG tracing showed no significant cardiac dysrhythmia. Extensive beta activity was seen diffusely during the study. Impression: This is essentially a normal awake and drowsy EEG. Extensive beta can be the results of medication effects including those from benzo and phenobarbital. Clinical Correlation: Normal EEGs, however, do not exclude epilepsy. Clinical correlation is advised.
[2018-12-09 19:40] LABS: Amphetamine Screen,Urine Positive ng/mL (Cutoff=1000); Barbiturate Screen,Urine Negative ng/mL (Cutoff=200); Benzodiazepines Screen,Urine Negative ng/mL (Cutoff=200); Cannabinoid Screen,Urine Negative ng/mL (Cutoff = 50); Cocaine Screen,Urine Negative ng/mL (Cutoff= 300); Opiate Screen,Urine Negative ng/mL (Cutoff=300); Phencyclidine Screen,Urine Negative ng/mL (Cutoff=25)
[2018-12-09] MEDS: Nicotine 21 MG PATCH.TD24 TD SCH (21:29)
[2018-12-09] MEDS: Insulin DETEMIR 100 UNIT/ML X5UNITS SQ SCH (22:09)
[2018-12-09] MEDS ORDERED: ALPRAZolam 1 MG TABLET PO PRN (22:11)
[2018-12-10 06:57] LABS: Basophils # 0.1 K/mcL (0.0-0.2); Basophils % 0.9 %; Eosinophils # 0.6 K/mcL (0.0-0.6); Hematocrit 38.6 % (35.3-44.9); Immature Granulocytes % 0.3 % (0-4); Lymphocytes # 4.6 K/mcL (0.6-4.6); Lymphocytes % 41.1 %; Mean Corpuscular HGB Conc 31.9 g/dL (31.6-35.5); Mean Corpuscular Hemoglobin 32.9 pg (28.0-33.3); Mean Corpuscular Volume 103.2 fL (83.0-100.0); Mean Platelet Volume 10.5 fL (9.4-12.4); Monocytes # 0.4 K/mcL (0.0-1.3); Neutrophils # 5.4 K/mcL (1.6-8.9); Platelet Count 272 K/mcL (140-400); Red Blood Count 3.74 M/mcL (3.82-4.97); Red Cell Distribution Width 13.1 % (11.5-14.5); Segmented Neutrophils % 48.7 %; White Blood Count 11.1 K/mcL (4.3-11.1)
[2018-12-10 06:59] LABS: Hemoglobin 12.3 g/dL (11.5-15.4)
[2018-12-10 07:24] LABS: BUN/Creatinine Ratio 18 (6-26); Blood Urea Nitrogen 13 mg/dL (8-23); Calcium 9.6 mg/dL (8.6-10.3); Carbon Dioxide 21 mEq/L (23-29); Chloride 109 mEq/L (98-107); Glucose 143 mg/dL (70-105); Magnesium 1.8 mg/dL (1.6-2.6); Osmolality,Calculated 293 (280-300); Phosphorous 2.4 mg/dL (2.7-4.5); Potassium 4.7 mEq/L (3.5-5.1); Sodium 140 mEq/L (136-145); eGFR For African Americans > 60 (> 60); eGFR For Non-African Americans > 60 (> 60)
[2018-12-10] MEDS: Insulin LISPRO 300 UNITS/3 ML VIAL SQ SCH ×3 (07:52→17:12)
[2018-12-10] MEDS: Nicotine 21 MG PATCH.TD24 TD SCH (07:53)
[2018-12-10] MEDS: Gabapentin 300 MG CAPSULE PO SCH ×3 (07:53→21:27)
[2018-12-10] MEDS: BuPROPion XL (24 HR) 150 MG TABLET PO SCH (07:53)
[2018-12-10] MEDS: Aspirin 81 MG TAB.CHEW PO SCH (07:53)
[2018-12-10] MEDS: Acetaminophen 325 MG TABLET PO PRN ×2 (07:59→18:07)
--- NOTE | 2018-12-10 09:15 | Internal Med Progress Note ---
Hospitalist Progress Note - Encounter Date of Encounter: 12/10/18 Time of Encounter: 09:00 - Subjective Interval History: No acute events overnight - Exam Vitals: Temp Pulse Resp BP Pulse Ox 97.5 F L 73 18 132/89 100 12/10/18 06:56 12/10/18 06:56 12/10/18 06:56 12/10/18 06:56 12/10/18 06:56 Exam: General: Alert and oriented 3 lying in bed in no acute distress Skin:Normal color, no rash, no lesions. HEENT:EOM, pupils equal, round and reactive. Cardiovascular:Normal S1 & S2, no rubs, murmurs or gallops. No JVD. Pulse regular. Lungs:Normal breath sounds, no wheezes or crackles. Abdomen:Soft, non-tender, no rigidity. Extremities:No deformity, no edema or tenderness, no joint swelling or clubbing. Neurological:Normal cognition and motor skills. Pulses:Carotid and radial pulses normal +2. Rest of the physical exam is non contributory - Assessment and Plan (1) Non-STEMI (non-ST elevated myocardial infarction) Current Visit: Yes Status: Acute Assessment and Plan: Concern for NSTEMI given elevated troponin in the setting of syncope. No prior history of cardiac disease the patient has significant risk factors of hypertension, diabetes and chronic smoking history. Troponins trended from 0.2 to 0.8 to 0.45. Echo showed depressed EF of 45 % Will obtain cardiac cath to r/o ischemic cardiomyopathy. Patient is euvolemic and no indication diuretics at this time (2) Syncope Current Visit: Yes Status: Acute Assessment and Plan: Syncopal episode query seizures vs dehydration vs NSTEMI Resolved. EEG showed no seizures Echo showed depressed EF. Cardio on board for cath today (3) Type 2 diabetes mellitus Current Visit: Yes Status: Acute Assessment and Plan: Blood sugar found to be 242 on arrival. Patient currently on metformin. -Diabetic diet -Sliding scale plus basal insulin with glucose checks (4) HTN (hypertension) Current Visit: Yes Status: Acute Assessment and Plan: Hold BP meds and hydrate. BP is borderline hypotensive (5) Neutrophilic leukocytosis Current Visit: Yes Status: Acute Assessment and Plan: Leukocytosis of 12.2. No evidence of underlying infection. Likely reactive in setting of syncope. No indication for antibiotics (6) DVT prophylaxis Current Visit: Yes Status: Acute Assessment and Plan: Subcutaneous heparin - Time Spent with Patient Total time spent is greater than 50% in coordination of care (as documented) at patient's floor/unit and/or counseling patient: Internal Medicine: Result - Labs CBC & Chem 7: 12/10/18 06:17 12/10/18 06:17 Labs: Short CBC 12/10/18 Range/Units 06:17 WBC 11.1 (4.3-11.1) K/mcL Hgb 12.3 D (11.5-15.4) g/dL Hct 38.6 (35.3-44.9) % Plt Count 272 (140-400) K/mcL Neutrophils # 5.4 (1.6-8.9) K/mcL BMP 12/10/18 06:17 Sodium 140 Potassium 4.7 Chloride 109 H Carbon Dioxide 21 L BUN 13 Creatinine 0.72 Glucose 143 H Calcium 9.6 Cardiac Enzymes 12/09/18 Range/Units 15:35 Troponin I 0.28 H* (< 0.04) ng/mL - ABG Interpretation ABG results: PT/INR, D-dimer PT 11.1 Seconds (9.4-12.1) 12/08/18 17:29 D-Dimer 409 ng/mLFEU (0-500) 12/08/18 17:29 - Impressions Impressions Brain MRI 12/09/18 03:52 IMPRESSION: No acute intracranial abnormality. Mild chronic microvascular ischemic disease. D/ / 12/09/2018 10:58:32 [facility] Inter[facility] Provider: Becky Givens MD Echocardiogram 12/09/18 20:41 Impressions: LVEF 45%. LV segmental wall motion abnormality (see Diagram below). Definity echo contrast was used. Small sized, not well defined apical mass which may represent thrombus vs. papillary muscle. Mild left ventricular diastolic dysfunction. Normal right ventricular structure and function. Mild mitral regurgitation. Mild tricuspid regurgitation. Mild pulmonic regurgitation. No pulmonary hypertension. Discussed with Cardiology. Left Ventricular Wall Motion: Rest Echo Findings The apex, apical septal, mid inferior septal and apical lateral garcia were hypokinetic. All other wall segments showed normal motion. Findings: Study Quality * Technically adequate exam. ECG Findings * Normal sinus rhythm. Left Ventricle * Definity echo contrast was used. * Mild left ventricular diastolic dysfunction. * No LVOT obstruction. * LVEF 45%. Right Ventricle * Normal right ventricular structure and function. Left Atrium * Normal left atrial size. Right Atrium * Normal right atrial size. Aortic Valve * No aortic regurgitation. * Trileaflet aortic valve. * No aortic stenosis. Mitral Valve * Normal mitral valve structure. * No mitral stenosis. * Mild mitral regurgitation. Tricuspid Valve * Normal tricuspid valve structure. * Mild tricuspid regurgitation. * Estimated RA pressure is 3 mmHg. * Estimated RVSP is 28 mmHg. * No pulmonary hypertension. Pulmonic Valve * Pulmonic valve is not well visualized. * No pulmonic stenosis. * Mild pulmonic regurgitation. Pulmonary Artery * Pulmonary artery not well visualized. Aorta * Normally sized aortic root. Pericardium * There is no pericardial effusion present. Interatrial Septum * No evidence of PFO by color Doppler. IVC * Normal IVC dimensions and inspiratory collapse. ADDENDUM: 12/09/18 5391 Impressions: LVEF 35-40%. LV segmental wall motion abnormality (see Diagram below). Definity echo contrast was used. Small sized, not well defined apical mass which may represent thrombus vs. papillary muscle. Mild left ventricular diastolic dysfunction. Normal right ventricular structure and function. Mild mitral regurgitation. Mild tricuspid regurgitation. Mild pulmonic regurgitation. No pulmonary hypertension. Discussed with Cardiology. Left Ventricular Wall Motion: Rest Echo Findings The apex, apical septal, mid inferior septal and apical lateral garcia were hypokinetic. All other wall segments showed normal motion. Findings: Study Quality * Technically adequate exam. ECG Findings * Normal sinus rhythm. Left Ventricle * Definity echo contrast was used. * Mild left ventricular diastolic dysfunction. * No LVOT obstruction. * LVEF 35-40%. Right Ventricle * Normal right ventricular structure and function. Left Atrium * Normal left atrial size. Right Atrium * Normal right atrial size. Aortic Valve * No aortic regurgitation. * Trileaflet aortic valve. * No aortic stenosis. Mitral Valve * Normal mitral valve structure. * No mitral stenosis. * Mild mitral regurgitation. Tricuspid Valve * Normal tricuspid valve structure. * Mild tricuspid regurgitation. * Estimated RA pressure is 3 mmHg. * Estimated RVSP is 28 mmHg. * No pulmonary hypertension. Pulmonic Valve * Pulmonic valve is not well visualized. * No pulmonic stenosis. * Mild pulmonic regurgitation. Pulmonary Artery * Pulmonary artery not well visualized. Aorta * Normally sized aortic root. Pericardium * There is no pericardial effusion present. Interatrial Septum * No evidence of PFO by color Doppler. IVC * Normal IVC dimensions and inspiratory collapse. Consult Discharge Plan - Plan Referrals: NONE,PCP [Primary Care Provider] - (2) Syncope Qualifiers: Syncope type: unspecified Qualified Code(s): R55 - Syncope and collapse (3) Type 2 diabetes mellitus Qualifiers: Qualified Code(s): E11.9 - Type 2 diabetes mellitus without complications (4) HTN (hypertension) Qualifiers: Hypertension type: essential hypertension Qualified Code(s): I10 - Essential (primary) hypertension
--- NOTE | 2018-12-10 09:38 | Cardiology Progress Note ---
Date of Encounter: 12/10/18 Time of Encounter: 09:36 Assessment and Plan (1) Altered mental state Current Visit: Yes Status: Acute Patient is current alert and answering appropriately but yesterday had two seizure-like episodes with seeming post-ictal period. -Unclear etiology -Elevated troponins x3, 0.20>0.80>0.45>0.28 -Low potassium from yesterday has resolved after repletion with KCl -Echocardiogram showed LVEF 35-40% with LV segmental wall motion abnormality. There was a small, poorly-defined apical mass which may be thrombus vs papillary muscle. There was mild LV diastolic dysfunction, normal RV structure and function, and mild MR, TR, CO, but no pulmonary HTN. -Carotid duplex showed bilateral nonstenotic plaques in carotid system -Plan is for cardiac catheterization today, likely this afternoon. -Continue to monitor on telemetry. Qualifiers: Qualified Code(s): R40.4 - Transient alteration of awareness Discussion w patient/family: The assessment and plan as outlined above was discussed with the patient and/or family members who expressed understanding and agreement. All questions were answered. Thank you for involving us in the care of your patient. Please call with any questions. Subjective Principal diagnosis: altered mental status of unclear etiologu Interval history: Patient has been scheduled for cardiac catheterization today and expresses some anxiety regarding this. She is also concerned that her smoker's cough will happen during the catheterization and that will cause difficulties with the t est. She otherwise denies any further episodes and reports that she slept well last night. Objective Vital Signs, Last 4 Hours Temp Pulse Resp BP Pulse Ox 12/10/18 06:56 97.5 F L 73 18 132/89 100 Other: GENERAL: awake, answering questions appropriately, slightly anxious EYES: clear sclerae, anicteric, pupils equal and reactive to light HENT: atraumatic, normocephalic, moist mucosa NECK: normal carotid pulses, no carotid bruits heard CV: regular rate and rhythm, no murmurs RESPIRATORY: clear to auscultation bilaterally GI: soft, nontender, nondistended. Normal bowel sounds heard EXTREMITIES: peripheral pulses 2+/4 bilaterally, cool skin at feet, nonedematous, capillary refill <2 sec Results 12/10/18 06:17 12/10/18 06:17 Lab Results 08/12/10/18 12/10/18 15:35 06:17 06:17 WBC 11.1 Hgb 12.3 D Hct 38.6 Plt Count 272 Sodium 140 Potassium 4.7 Chloride 109 H Carbon Dioxide 21 L BUN 13 Creatinine 0.72 Glucose 143 H Calcium 9.6 Magnesium 1.8 Troponin I 0.28 H* - Imaging and Cardiology Echo: report reviewed Other Results: carotid duplex report reviewed Consult Discharge Plan - Plan Referrals: NONE,PCP [Primary Care Provider] -
[2018-12-10] MEDS ORDERED: GuaiFENesin Liq 200 MG/10 ML UDC PO PRN (10:41)
[2018-12-10] MEDS ORDERED: Acetylcysteine 10% 2 ML INHSOL IH ONE (10:42)
[2018-12-10] MEDS ORDERED: Albuterol 2.5 MG/3 ML NEBULIZER IH PRN (10:42)
[2018-12-10] MEDS: Metoprolol XL (24 HR) Succ 25 MG TAB.ER.24H PO SCH (14:06)
[2018-12-10] MEDS ORDERED: *HR* Heparin 10,000 UNIT/10 ML VIAL ONE ×2 (15:58→16:42)
[2018-12-10] MEDS ORDERED: Iopamidol 125 ML INFUS..BTL ONE ×2 (15:59→16:40)
[2018-12-10] MEDS ORDERED: Heparin 1,000 UNITS/500 mL 500 ML ONE (15:59)
[2018-12-10] MEDS ORDERED: 0.9 % Sodium Chloride 1,000 ML ONE (15:59)
[2018-12-10] MEDS ORDERED: Nitroglycerin 1,000 MCG/10 ML VIAL IV ONE (15:59)
[2018-12-10] MEDS ORDERED: *HR* FentaNYL (PF) 100 MCG/2 ML VIAL ONE (16:27)
[2018-12-10] MEDS ORDERED: *HR* Midazolam HCl 2 MG/2 ML VIAL ONE (16:27)
--- NOTE | 2018-12-10 16:30 | Pre-Sedation Evaluation ---
Pre-sedation evaluation - Pre-sedation checklist Date of procedure: 12/10/18 Procedure: Diagnostic cardiac catheterization per diabetes clinical manager note Recent Vitals: Last Vital Signs Temp 97.9 F 12/10/18 12:13 Pulse 78 12/10/18 12:13 Resp 18 12/10/18 12:13 BP 132/85 12/10/18 12:13 Pulse Ox 97 12/10/18 12:13 H&P (including ROS) documented in medical record: Yes Previous reaction to sedatives/anesthetics: Yes; explain in comment Dietary Status: NPO after Midnight Dentition: dentures removed ASA Classification *see protocol: CLASS II-Mild systemic disease Cardiac Registry (Cardio Only) - Functional Capacity Functional Capacity: >=4 METS with symptoms - Clincal Frailty Scale Clinical Frailty Scale: Managing Well
[2018-12-10] MEDS ORDERED: Tirofiban 12.5 MG/250ML 12.5 MG/250 ML BAG ONE (16:43)
[2018-12-10] MEDS ORDERED: Tirofiban 12.5 MG/250ML 12.5 MG/250 ML BAG IVC SCH (17:00)
--- NOTE | 2018-12-10 17:12 | Invasive Diagnostic Lab Proc ---
Name: Dea Thomson Date of Study: 12/10/2018 Date: 1955 Ht: 61.8in Medical Record#: [id number] Age: 63 Wt: 152.12lb Gender: Female BSA: 1.7 Order #: [id number] BMI: 27.99 Physicians Procedure Physician: Mariana Matamoros MD Referring MD: Referring MD: Staff Name Position Time In Jennifer Gordillo RT (R) Monitor 04:33 PM Rober Casper RN Newsstand Vendor 04:34 PM Procedures Performed Procedure L HRT ARTERY/VENTRICLE ANGIO PRQ CARD BRENT STENT W/ANGIO 1 VSL Pre-Procedure Checklist Informed consent is complete signed and on chart. H&P is on chart. ID band is on and ID verified with patient. Patient NPO for procedure The procedure was described for the patient and questions were answered. ECG is on chart. Plan of Care Patient will tolerate the procedure without complications. Adequate level of comfort will be maintained. Hemodynamics will remain stable Patient will recover from procedure without complications. Respiratory function will be maintained. Cardiac rhythm will remain stable. Patient temperature will be maintained. Patient and/or family have verbalized understanding of the procedure. Patient Education Chief Complaint/Reason for Test: Cardiac Cath Developmental Category: Adult (18-64 years) Developmentally Appropriate for Age: Yes Learning Barriers: None Education Needs: Procedure Education Method: Verbal Information Taught: Cardiac Cath Educational Evaluation: Able to repeat information Intravenous Access Time IV Size Location DC'd Fluid/Drip Rate Units RN 20g 1 /" Patent On Arrival 0.9NaCl ml/hr Allergies No Known Allergies NKA NO HOME MEDICATIONS Vital Signs Time BP (mmHg) HR (bpm) O2 Sat. RR (bpm) LOC 04:26 PM / % 5 = Fully awake and oriented or at pre-proc level 04:28 PM 140 / 91 83 97 % 19 04:33 PM 145 / 107 85 99 % 16 04:38 PM 155 / 97 82 100 % 17 04:43 PM 147 / 98 83 97 % 15 04:48 PM 135 / 96 77 100 % 20 04:53 PM 151 / 98 83 95 % 24 04:58 PM 161 / 107 82 96 % 30 Procedural Medications Time Medication Dose Units Method Given By 04:25 PM Oxygen 2 L/min nasal cannula Neil Billy RN 04:28 PM Versed 1 mg Intravenous Neil Billy RN 04:28 PM Fentanyl 50 mcg Intravenous Neil Billy RN 04:35 PM Lidocaine 2% 10 ml Subcutaneous Mariana Matamoros MD 04:42 PM Heparin 3500 units Intravenous Rober Casper RN 04:44 PM Aggrastat Bolus: 33 ml Intravenous Rober Casper RN 04:44 PM Aggrastat 12.5mg/250ml 12 ml Intravenous Rober Casper RN 04:56 PM Plavix 600 mg Orally Rober Casper RN ASA Classification: CLASS II- Mild systemic disease (i.e. well-controlled diabetes, hypertension, asthma, cigarette smoking) Ai Score Preprocedure Postprocedure Activity 2- Moves 4 extremities sustained head lift Activity 2- Moves 4 extremities sustained head lift Circulation 2- SBP +/= 20 points of pre-anesthetic level Circulation 2- SBP +/= 20 points of pre-anesthetic level Consciousness 2- Awake and alert oriented x 3 Consciousness 2- Awake and alert oriented x 3 O2 Saturation 2- Able to maintain O2 satruation of 92% on room air O2 Saturation 2- Able to maintain O2 satruation of 92% on room air Respiratory 2- Able to deep breathe and cough well Respiratory 2- Able to deep breathe and cough well Total Score 10 Total Score 10 Contrast Agent: Isovue Diagnostic Contrast: 87 ml Total Contrast: 87 ml Fluoro Dose: 14 mGy Procedure Log Time Note Enter By 04:22 PM 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 ced 04: PM Physician arrived 16:25 ced 04:25 PM ASA Class CLASS II- Mild systemic disease (i.e. well-controlled diabetes, hypertension, asthma, cigarette smoking) ced 04:25 PM Ethan and isa completed 04:25 PM Sign in performed according to hospital policy. Informed consent was obtained. : PM Time: 16:25 Oxygen on at 2 L/min per nasal cannula by Neil Billy RN : PM Time: 16:26 Patient comfortable and pain free: Yes : PM Time: 16:26LOC: 5 = Fully awake and oriented or at pre-proc level cedwards 04:26 PM Vitals capture started with the following parameters, Patient=Adult, Interval=5 min, Initial Ltbqigfw=558 mmHg, Deflation Rate=3 mmHg, Cuff placed on Right Arm 04:26 PM Vitals capture stopped. 04:27 PM Vitals capture started with the following parameters, Patient=Adult, Interval=5 min, Initial Hfketbtu=794 mmHg, Deflation Rate=3 mmHg, Cuff placed on Right Arm 04:27 PM CathStat 04:27 PM Procedure start 16:27 cedwards 04:28 PM HR=83 bpm, DZIW=944/91 mmhg, SpO2=97.0 %, Resp=19 B/min 04:28 PM Time: 16:28 Versed 1 mg Intravenous Given by Neil Billy RN cedwards 04:28 PM Time: 16:28 Fentanyl 50 mcg Intravenous Given by Neil Billy RN cedwards 04:28 PM Recorded ECG: HR=85 Condition=Condition 1 04:29 PM Recorded ECG: HR=85 Condition=Condition 1 04:30 PM Pressure channel 1 zeroed. 04:31 PM Clinical Presentation: Unstable angina cedwards 04:31 PM Time out was performed according to hospital policy. Conscious sedation and anesthesia was achieved (see medication log with in this report above) cedwards 04:33 PM HR=85 bpm, XOXG=936/107 mmhg, SpO2=99.0 %, Resp=16 B/min 04:33 PM Jennifer Gordillo RT (R) Position: Monitor Time in: 16:33 to relieve Rober Casper RN cedwards 04:34 PM Rober Casper RN Position: Newsstand Vendor Time in: 16:34 to relieve Neil Billy RN cedwards 04:35 PM Time: 16:35 10 ml Lidocaine 2% to right groin Subcutaneous Given by Mariana Matamoros MD [email or web address] 04:35 PM Micro-Introducer Kit utilized for sheath placement [email or web address] 04:35 PM Access obtained by percutaneous puncture. 6Fr 10cm Terumo Redmon sheath placed in right Femoral artery. [id number] [email or web address] 04:35 PM 0.035 145cm Navilyst 3mmJ wire [id number] [email or web address] 04:35 PM 5Fr FR 4 catheter inserted over the wire [facility] [email or web address] 04:36 PM RCA angiography performed in multiple views. [email or web address] 04:36 PM Recorded Pressure: Ao, HR=84, Condition=Condition 1 (Aorta) Ao 120/75/100 04:37 PM Coronary Dominance: right [email or web address] 04:37 PM Catheter removed [email or web address] 04:37 PM 5Fr FL 4 catheter inserted over the wire DNC [email or web address] 04:38 PM HR=82 bpm, HYSU=039/97 mmhg, OhP8=830.0 %, Resp=17 B/min, Comment=sr 04:38 PM Catheter removed [email or web address] 04:39 PM 5Fr FL 3.5 catheter inserted over the wire [id number] [email or web address] 04:40 PM LCA angiography performed in multiple views. [email or web address] 04:40 PM Recorded Pressure: Ao, HR=82, Condition=Condition 1 (Aorta) Ao 138/98/116 04:42 PM Catheter removed [email or web address] 04:42 PM 5Fr Pigtail catheter inserted over the wire DN [email or web address] 04:42 PM Catheter crossed the aortic valve and was selectively placed in the left ventricle. Pressures recorded on pullback for left heart catheterization. [email or web address] 04:42 PM Time: 16:42 Heparin 3500 units Intravenous Given by Rober Casper RN [email or web address] 04:42 PM Recorded Pressure: LV, HR=86, Condition=Condition 1 (Left Ventricle) LV 150/31/26 04:42 PM Recorded Pressure: LV, Ao, HR=84, Condition=Condition 1 (Left Ventricle) LV 152/25/27, (Aorta) Ao 145/51/94 04:43 PM HR=83 bpm, MMYI=159/98 mmhg, SpO2=97.0 %, Resp=15 B/min, Comment=sr 04:43 PM Catheter removed [email or web address] 04:43 PM 6Fr JR 4 Runway guide catheter was used to cannulate the PCI vessel successfully. reused? No [email or web address] 04:43 PM .014 [employer] [place] 190cm guide wire across target lesion- successful. reused? No [email or web address] 04:43 PM Inflation device was opened. [email or web address] 04:43 PM Lesion found in Proximal RCA. Pre Stenosis: 70 Pre DEANNA Flow: 3: Complete and Brisk Flow/Perfusion [email or web address] 04:44 PM Lesion found in Distal RCA. Pre Stenosis: 80 Pre DEANNA Flow: 3: Complete and Brisk Flow/Perfusion [email or web address] 04:44 PM Time: 16:44 Aggrastat Bolus: 33 ml Intravenous Given by Rober Casper RN Blair pump [email or web address] 04:45 PM Time: 16:44 Aggrastat 12.5mg/250ml 12 ml Intravenous Given by Rober Casper RN Blair pump [email or web address] 04:45 PM 2.0 mm x 12 mm Emerge Monorail balloon across target lesion- successful. reused? No [email or web address] 04:46 PM Recorded Pressure: Ao, HR=81, Condition=Condition 1 (Aorta) Ao 129/78/101 04:47 PM Balloon inflated @ 6 soco for 6 seconds [email or web address] 04:48 PM HR=77 bpm, XMCS=822/96 mmhg, DmL4=674.0 %, Resp=20 B/min, Comment=sr 04:49 PM Balloon inflated @ 6 soco for 5 seconds [email or web address] 04:49 PM Balloon catheter removed intact. [email or web address] 04:49 PM 2.5mm x 16mm Synergy drug-eluting stent across target lesion- successful Lot #[id number] [email or web address] 04:50 PM Stent deployed @ 6 soco for 8 seconds [email or web address] 04:51 PM Stent delivery system removed intact. [email or web address] 04:51 PM Recorded Pressure: Ao, HR=83, Condition=Condition 1 (Aorta) Ao 152/93/119 04:52 PM 3.0mm x 16mm Synergy drug-eluting stent across target lesion- successful Lot #[id number] [email or web address] 04:53 PM HR=83 bpm, JIUT=872/98 mmhg, SpO2=95.0 %, Resp=24 B/min, Comment=sr 04:53 PM Stent deployed @ 9 soco for 6 seconds [email or web address] 04:53 PM Stent balloon reinflated @ 16 soco for 7 seconds [email or web address] 04:54 PM Lesion found in Mid RCA. Pre Stenosis: 40 Pre DEANNA Flow: 3: Complete and Brisk Flow/Perfusion [email or web address] 04:54 PM Stent delivery system removed intact. [email or web address] 04:54 PM Guide wire removed intact. [email or web address] 04:54 PM Guide catheter removed intact. [email or web address] 04:55 PM Lesion found in Mid LAD. Pre Stenosis: 50 Pre DEANNA Flow: 3: Complete and Brisk Flow/Perfusion [email or web address] 04:55 PM Lesion found in Proximal LAD. Pre Stenosis: 40 Pre DEANNA Flow: 3: Complete and Brisk Flow/Perfusion [email or web address] 04:55 PM Lesion found in Mid Circumflex. Pre Stenosis: 60 Pre DEANNA Flow: 3: Complete and Brisk Flow/Perfusion [email or web address] 04:55 PM Procedure completed at 16:55 12/10/2018 [email or web address] 04:55 PM Did you address DEANNA flow and Dominance? YesCoronary Dominance: right [email or web address] 04:56 PM Sign out completed: Radiation Dose 342.66 mGy, 14.5 Gy/cm2 Fluoro Time: 6.7 Isovue 370 - 200ml contrast 87 ml given by Mariana Matamoros MD. Complications: None. The patient was discharged out of the garage laborer in stable condition. Sedation minutes 28. Cardiac Rehab Consult needed: Yes. Confirmed administered medications: Yes [email or web address] 04:56 PM Isovue 370 - 200ml,1 Bottle(s) used. [email or web address] 04:56 PM Time: 16:56 Plavix 600 mg Orally Given by Rober Casper RN [email or web address] 04:57 PM Arterial sheath pulled, Angio-seal closure device used and was Successful S/N. [email or web address] 04:57 PM Estimated Blood Loss: minimal [email or web address] 04:57 PM Post ECG NSR [email or web address] 04:58 PM HR=82 bpm, RDAC=131/107 mmhg, SpO2=96.0 %, Resp=30 B/min, Comment=sr 04:58 PM Post Blood Pressure 151/98 [email or web address] 04:58 PM 16:58 Post Pulses Bilateral DP & PT 1+ [email or web address] 04:58 PM Information taught PCI and Cardiac Cath [email or web address] 04:58 PM Education needs Procedure, Plan of Care, and Disease Process [email or web address] 04:58 PM Learning barriers :None [email or web address] 04:58 PM Education Methods Verbal [email or web address] 04:58 PM Education evaluation Able to repeat information [email or web address] 04:58 PM Site status No bleeding/ No Hematoma - Rt Groin as reported by Erlin Whitehead RT (R) at 16:58 [email or web address] 04:58 PM Opsite applied [email or web address] 04:58 PM Delay to floor No [email or web address] 04:59 PM Family placed in consult room. [email or web address] 04:59 PM Complications: None [email or web address] 05:05 PM Report given to Jennifer CORDERO Pt taken to 2A Room #41. 17:05 [email or web address] 05:05 PM Patient out of room: 17:05 [email or web address] Complications Complication None None Hemodynamics Pressures Site Systolic/A Wave Diastolic/V Wave Mean AO 120 75 100 AO 138 98 116 LV 150 31 26 LV 152 25 27 AO 145 51 94 AO 129 78 101 AO 152 93 119 Post Procedure Information Blood Pressure: 151/98 mmHg Rhythm: NSR Post procedural instructions were given Closure Device Time Device Success/Fail 12/10/2018 4:56:00 PM Angio-Seal VIP Successful Site Checks Time Location Status Staff Sheath In? Note 04:58 PM Rt Groin No bleeding/ No Hematoma Erlin Whitehead RT (R) Pulses Time Site Pre-Procedure Post-Procedure Note Bilateral DP & PT 1+ Bilateral radial 2+ 4:58:00 PM Bilateral DP & PT 1+ Updated by Jennifer Gordillo, RT(R) on 12/10/2018 5:05:38 PM electronically signed on 12/10/2018 5:06:41 PM with status of Final
[2018-12-10] MEDS: *HR* Heparin 5,000 UNIT/ML VIAL SQ SCH (18:00)
[2018-12-10] MEDS ORDERED: Insulin Human Regular 10 UNIT in 0.9 % Sodium Chloride 10 ML IV ONE ×2 (21:16→21:39)
[2018-12-10] MEDS: Insulin DETEMIR 100 UNIT/ML X5UNITS SQ SCH ×2 (21:26→21:54)
[2018-12-11] MEDS: *HR* Heparin 5,000 UNIT/ML VIAL SQ SCH (05:23)
[2018-12-11 06:29] LABS: Basophils # 0.1 K/mcL (0.0-0.2); Basophils % 0.9 %; Eosinophils # 0.5 K/mcL (0.0-0.6); Eosinophils % 4.1 %; Hematocrit 37.5 % (35.3-44.9); Hemoglobin 12.2 g/dL (11.5-15.4); Immature Granulocytes % 0.3 % (0-4); Lymphocytes # 3.9 K/mcL (0.6-4.6); Lymphocytes % 31.4 %; Mean Corpuscular HGB Conc 32.5 g/dL (31.6-35.5); Mean Corpuscular Hemoglobin 32.8 pg (28.0-33.3); Mean Corpuscular Volume 100.8 fL (83.0-100.0); Mean Platelet Volume 10.4 fL (9.4-12.4); Monocytes # 0.6 K/mcL (0.0-1.3); Neutrophils # 7.2 K/mcL (1.6-8.9); Platelet Count 276 K/mcL (140-400); Red Blood Count 3.72 M/mcL (3.82-4.97); Red Cell Distribution Width 12.6 % (11.5-14.5); Segmented Neutrophils % 58.3 %; White Blood Count 12.4 K/mcL (4.3-11.1)
[2018-12-11 06:46] LABS: BUN/Creatinine Ratio 25 (6-26); Blood Urea Nitrogen 20 mg/dL (8-23); Calcium 9.8 mg/dL (8.6-10.3); Carbon Dioxide 23 mEq/L (23-29); Chloride 103 mEq/L (98-107); Glucose 196 mg/dL (70-105); Magnesium 1.6 mg/dL (1.6-2.6); Osmolality,Calculated 292 (280-300); Phosphorous 4.1 mg/dL (2.7-4.5); Potassium 4.4 mEq/L (3.5-5.1); Sodium 137 mEq/L (136-145); eGFR For African Americans > 60 (> 60); eGFR For Non-African Americans > 60 (> 60)
[2018-12-11 07:03] VITALS: BP 151/98
--- NOTE | 2018-12-11 08:31 | Cardiology Progress Note ---
Date of Encounter: 12/11/18 Time of Encounter: 07:45 Assessment and Plan (1) Non-STEMI (non-ST elevated myocardial infarction) Current Visit: Yes Status: Acute Per cardiology: -NSTEMI s/p LHC yesterday with PCI to RCA. -Denies chest pain. -On asa, statin, BB, plavix. Educated on dual anti-platelet therapy uninterrupted for at least one year, states understanding. -Right groin access site with mild ecchymosis, no hematoma. Right groin access site management education reviewed with patient, states understanding. -Cardiology will sign off, will arrange close outpatient follow up. (2) Cardiomyopathy Current Visit: Yes Status: Acute Per cardiology: -TTE with LVEF 45% with segmental wall motion abnormalities. -Euvolemic on exam. -On BB. -S/p PCI yesterday. -Will add rio inhibitor. -CHF education reviewed with patient. -Plan for repeat TTE in 3 months. Qualifiers: Cardiomyopathy type: unspecified Qualified Code(s): I42.9 - Cardiomyopathy, unspecified (3) Altered mental state Current Visit: Yes Status: Acute Per cardiology: -Admitted with altered mental status. -Was evaluated by neurology. -No cardiac arrythmias noted during this admission. -Discussed and reviewed with , recommend discharge with 2 week event monitor, will order. Qualifiers: Qualified Code(s): R40.4 - Transient alteration of awareness Discussion w patient/family: The assessment and plan as outlined above was discussed with the patient who expressed understanding and agreement. All questions were answered. Thank you for involving us in the care of your patient. Please call with any questions. Discussed and reviewed with . Subjective Principal diagnosis: altered mental status of unclear etiologu Interval history: Patient is awake, alert, oriented today. Denies complaints. Objective Vital Signs, Last 4 Hours Temp Pulse Resp BP 12/11/18 07:00 98.4 F 88 19 151/98 General: Conversant, No Apparent Distress HEENT: Atraumatic, Normocephaly, Mucus Membranes Moist Neck: No JVD, Normal carotid pulses Cardiac: Reg Rate and Rhythm, Normal S1 and S2, No Murmur Lungs: Normal Breath Sounds, No Wheeze, Rales, Rhonchi Neuro: Alert and responsive, No focal deficits noted Abdomen: Soft, Non-Tender Skin: No rashes noted on visualized skin, Other (Right groin access site with mild ecchymosis. No hematoma. ) Musculoskeletal: No Chest Wall Tenderness Extremities: No Clubbing, No Cyanosis, No Edema, Normal Pulses Results 12/11/18 06:07 12/11/18 06:07 Lab Results Active Medications Acetaminophen (Tylenol) 325 mg PO Q6H PRN PRN Reason: Pain Stop: 06/09/19 20:45 Last Admin: 12/10/18 18:07 Dose: 325 mg Documented by: Albuterol Sulfate (Proventil Neb) 2.5 mg IH [id number] PRN; Protocol PRN Reason: Shortness Of Breath/Wheezing Stop: 06/11/19 10:43 Alprazolam (Xanax) 1 mg PO BID PRN; Protocol PRN Reason: Anxiety Stop: 06/10/19 22:12 Last Admin: 12/09/18 23:07 Dose: 1 mg Documented by: Aspirin (Aspirin) 81 mg PO DAILY [facility] Stop: 06/10/19 09:01 Last Admin: 12/11/18 08:50 Dose: 81 mg Documented by: Atorvastatin Calcium (Lipitor) 40 mg PO HS [facility] Stop: 06/10/19 04:01 Last Admin: 12/10/18 21:27 Dose: 40 mg Documented by: Bupropion HCl (Wellbutrin Xl) 300 mg PO DAILY [facility] Stop: 06/10/19 09:01 Last Admin: 12/11/18 08:50 Dose: 300 mg Documented by: Clopidogrel Bisulfate (Plavix) 75 mg PO DAILY [facility] Stop: 06/12/19 09:01 Last Admin: 12/11/18 08:50 Dose: 75 mg Documented by: Dextrose/Water (Dextrose 50% (Syg)) 25 ml IVP AD PRN PRN Reason: Hypoglycemia Stop: 06/09/19 20:44 Gabapentin (Neurontin) 600 mg PO TID [facility] Stop: 06/09/19 21:01 Last Admin: 12/11/18 08:50 Dose: 600 mg Documented by: Glucagon (Glucagen) 1 mg IM ONCE PRN PRN Reason: Hypoglycemia Stop: 06/09/19 20:44 Glucose (Gluctose) 15 gm PO ONCE PRN PRN Reason: Hypoglycemia Stop: 06/09/19 20:44 Glucose (Gluctose) 30 gm PO ONCE PRN PRN Reason: Hypoglycemia Stop: 06/09/19 20:44 Guaifenesin (Robitussin Liq) 200 mg PO Q6HR PRN PRN Reason: Cough Stop: 06/11/19 10:42 Last Admin: 12/11/18 05:25 Dose: 200 mg Documented by: Heparin Sodium (Porcine) (Heparin) 5,000 unit SQ Q12HCO [facility] Stop: 06/11/19 18:01 Last Admin: 12/11/18 05:23 Dose: 5,000 unit Documented by: Dextrose (Dextrose 5%) 1,000 mls @ 100 mls/hr IVC .Q10H PRN PRN Reason: HYPOGLYCEMIA Stop: 06/09/19 20:44 Insulin Detemir (Levemir) 10 unit 0.15 unit/kg (10 unit) SQ HS [facility] Stop: 06/09/19 21:01 Last Admin: 12/10/18 21:54 Dose: 10 unit Documented by: Insulin Human Lispro (Humalog) 0 units SQ TIDAC [facility]; Protocol Stop: 06/09/19 20:46 Last Admin: 12/11/18 08:49 Dose: 2 units Documented by: Lisinopril (Zestril) 5 mg PO DAILY [facility]; Protocol Stop: 06/12/19 09:01 Last Admin: 12/11/18 08:50 Dose: 5 mg Documented by: Lorazepam (Ativan) 1 mg IVP Q4HR PRN PRN Reason: Seizure Activity Stop: 06/10/19 16:01 Metoprolol Succinate (Toprol Xl) 25 mg PO DAILY [facility] Stop: 06/11/19 12:46 Last Admin: 12/11/18 08:50 Dose: 25 mg Documented by: Naloxone HCl (Narcan) 0.4 mg IVP Q2MPRN PRN PRN Reason: SEE COMMENTS Stop: 06/09/19 20:39 Nicotine (Nicoderm) 21 mg TD DAILY [facility]; Protocol Stop: 06/10/19 17:51 Last Admin: 12/11/18 08:50 Dose: 21 mg Documented by: Laboratory Tests 12/11/18 12/11/18 06:07 06:07 WBC 12.4 H Hgb 12.2 Creatinine 0.79 - Imaging and Cardiology Chest Xray: report reviewed Echo: report reviewed Cardiac cath: report reviewed - EKG Interpretation EKG results cardiology: other (Telemetry reviewed with average HR previous 12 hours noted to be 86, SR. PVCs, PACs noted.) Consult Discharge Plan - Plan Referrals: NONE,PCP [Primary Care Provider] -
[2018-12-11] MEDS: Insulin LISPRO 300 UNITS/3 ML VIAL SQ SCH (08:49)
[2018-12-11] MEDS: Gabapentin 300 MG CAPSULE PO SCH (08:50)
[2018-12-11] MEDS: Nicotine 21 MG PATCH.TD24 TD SCH (08:50)
[2018-12-11] MEDS: Aspirin 81 MG TAB.CHEW PO SCH (08:50)
[2018-12-11] MEDS: BuPROPion XL (24 HR) 150 MG TABLET PO SCH (08:50)
[2018-12-11] MEDS: Metoprolol XL (24 HR) Succ 25 MG TAB.ER.24H PO SCH (08:50)
--- NOTE | 2018-12-11 09:34 | Discharge Summary ---
Date of Encounter: 12/11/18 Time of Encounter: 09:00 - Discharge Diagnosis (1) Non-STEMI (non-ST elevated myocardial infarction) Priority: Primary Status: Acute Assessment and Plan: 63 year old female with a past medhx of diabetes non-insulin dependent, HTN and anxiety who presented to the ED after patient became unresponsive at home. Patient was in her usual state of health today. She stood up from the couch around 1pm, got very dizzy and lightheaded and had to sit down. She called her daughter from upstairs and when daughter came downstairs to check on her mom, she stated her mom was shaking diffusely including arms and legs with eyes rolling in the back of her head. Patient does not recall uncontrollable shaking of her left upper and lower extremities. Episode lasted approximately 5 minutes. Patient denies loss of consciousness but does not recall the event and was confused reportedly for a short period of time afterwards. Patient has no prior history of seizures or cardiac disease. She was assessed with syncope r/o dehydration vs seizures vs arrhythmia and NSTEMI. She was administered IV fluids with improvement in her symptoms. A seizure work up was negative. She however had elevated troponins and had a depressed EF of unclear duration on echo likely 2/2 to ischemic cardiomyopathy. She had a left heart cath done and had PCI to RCA. She will be on aspirin and plavix for a year and will follow up with cardiology in 3 months for a repeat echo. She was ordered an event monitor on discharge to r/o arrhythmia as a cause of her syncopal episode. 35 minutes was spent discharging this patient (2) Syncope Priority: Primary Status: Acute Qualifiers: Syncope type: unspecified Qualified Code(s): R55 - Syncope and collapse (3) Type 2 diabetes mellitus Priority: Primary Status: Acute Qualifiers: Qualified Code(s): E11.9 - Type 2 diabetes mellitus without complications (4) HTN (hypertension) Priority: Primary Status: Acute Qualifiers: Hypertension type: essential hypertension Qualified Code(s): I10 - Essential (primary) hypertension (5) Neutrophilic leukocytosis Priority: Primary Status: Acute (6) DVT prophylaxis Priority: Primary Status: Acute Hospital course: Ms. Thomson is a 63 year old female - Time Spent with Patient Total time spent providing and/or coordinating discharge services: - Discharge Medications Prescriptions: New Nicotine Patch [Nicoderm] 21 mg TD DAILY #30 patch.td24 Clopidogrel [Plavix] 75 mg PO DAILY 120 Days #120 tablet Atorvastatin [Lipitor] 40 mg PO HS #60 tablet Lisinopril [Zestril] 5 mg PO DAILY #60 tablet Metoprolol XL (24 HR) Succ [Toprol Xl] 25 mg PO DAILY #60 tab.er.24h Aspirin 81 mg PO DAILY #120 tab.chew Continued ALPRAZolam [Xanax 1 MG Tablet] 1 mg PO BID PRN PRN Reason: Anxiety Gabapentin 600 mg PO TID Bupropion HCl [Wellbutrin Xl] 300 mg PO DAILY OxyCODONE/APAP 10/325 [Percocet 10/325 MG] 1 each PO Q6H PRN PRN Reason: Pain Metformin HCl [Fortamet] 500 mg PO DAILY Discontinued Lisinopril-HCTZ 20-12.5 [Prinzide 20-12.5] 1 each PO DAILY Home Medications: ALPRAZolam [Xanax 1 MG Tablet] 1 mg PO BID PRN 12/08/18 [History] Bupropion HCl [Wellbutrin Xl] 300 mg PO DAILY 12/08/18 [History] Gabapentin 600 mg PO TID 12/08/18 [History] Metformin HCl [Fortamet] 500 mg PO DAILY 12/08/18 [History] OxyCODONE/APAP 10/325 [Percocet 10/325 MG] 1 each PO Q6H PRN 12/08/18 [History] Aspirin 81 mg PO DAILY #120 tab.chew 12/11/18 [Rx] Atorvastatin [Lipitor] 40 mg PO HS #60 tablet 12/11/18 [Rx] Clopidogrel [Plavix] 75 mg PO DAILY 120 Days #120 tablet 12/11/18 [Rx] Lisinopril [Zestril] 5 mg PO DAILY #60 tablet 12/11/18 [Rx] Metoprolol XL (24 HR) Succ [Toprol Xl] 25 mg PO DAILY #60 tab.er.24h 12/11/18 [Rx] Nicotine Patch [Nicoderm] 21 mg TD DAILY #30 patch.td24 12/11/18 [Rx] Allergies/Adverse Reactions: Allergy/AdvReac Type Severity Reaction Status Date / Time No Known Allergies Allergy Verified 07/06/16 03:05 Date of admission: 12/10/18 14:26 Primary care physician: PCP NONE Consults: 12/08/18 20:42 Consult to Cardiology [CONS] Routine Comment: Consulting Provider: Cardiology Maura Reason for Consult: Syncope/elevated troponin Call Completed: No 12/09/18 08:26 Consult to Neurology [CONS] Routine Consulting Provider: Neurology [facility] Reason for Consult: syncpe with shaking and confusion r/o seizures Call Completed: No 12/09/18 15:44 Consult to Interpret Exam [CONS] Routine Consulting Provider: Annie Quezada Consult to Interpret Exam: Interpret EEG 12/09/18 16:20 Consult to Nurse Navigator [CONS] Routine Comment: NSTEMI 12/10/18 16:58 Consult to Cardiac Rehabilitation-Phase1 [CONS] Routine Comment: Reason for Consult: AMI Call Completed: Yes Consult to Nurse Navigator [CONS] Routine Comment: - Constitutional Vitals: Temp Pulse Resp BP Pulse Ox 98.4 F 88 19 151/98 96 12/11/18 07:00 12/11/18 07:00 12/11/18 07:00 12/11/18 07:00 12/11/18 03:08 Exam: General: Alert and oriented 3 lying in bed in no acute distress Skin:Normal color, no rash, no lesions. HEENT:EOM, pupils equal, round and reactive. Cardiovascular:Normal S1 & S2, no rubs, murmurs or gallops. No JVD. Pulse regular. Lungs:Normal breath sounds, no wheezes or crackles. Abdomen:Soft, non-tender, no rigidity. Extremities:No deformity, no edema or tenderness, no joint swelling or clubbing. Neurological:Normal cognition and motor skills. Pulses:Carotid and radial pulses normal +2. Rest of the physical exam is non contributory - Patient Status Disposition: Home, Self-Care Condition: Good - Discharge Instructions Instructions: Pacemaker (DC), Syncope (DC) Follow Up With: NONE,PCP [Primary Care Provider] - Davon Butcher DO [Partnered Physician] - (Web Request sent 12/11/2018.) Forms: ED Satisfaction Letter
--- NOTE | 2018-12-16 10:59 | Electrocardiograph Report ---
[facility] Test Date: 2018-12-08 Pat Name: Dea Thomson Department: [id number] Room: 2A41 Gender: F Cell [employer]rer: : 1955 Requested By: Jesus Shelton Order Number: [id number] Reading MD: Guillermo Stark Measurements Intervals [place] Rate: 92 P: 82 GA: 177 QRS: 71 QRSD: 88 T: 79 QT: 376 QTc: 466 Interpretive Statements Sinus rhythm Low voltage, precordial leads Anteroseptal infarct, old Electronically Signed On 12-16-2018 10:57:47 EDT by Guillermo Stark
== END 2018-12-11 10:57 | disposition home or self-care (01) | DRG 247 ==
LOC: 2ANU 16:16 → EMEROOARM 16:16 → 2ANU 21:20
PROVIDERS: ADMIT Internal Medicine; ATTEND Internal Medicine